=== PATIENT | male | born 1980 | race Two or more races ===

== ENCOUNTER 2017-04-21 21:12 | Emergency (ER) | payer SELFPAY ==
[~2017-04-21] VITALS: Ht 172.7 cm; Wt 84.8 kg
[2017-04-21 21:12] VITALS: BP_SYST 131
--- NOTE | 2017-04-21 21:12 | NUR ---
Patient to ER bed 1 to gown for evaluation. Side rails up. Report given to ROB JULIAN.
--- NOTE | 2017-04-21 21:20 | NUR ---
Pt states that he a sudden onset of R flank pain 8/ that radiates to the umbillical area. Denies nausea and vomitting. Denies dysuria. Denies constipation. Pt is tender in the area. AAOx4. Will continue to monitor. No other injuries or complaints mentioned/noted. No distress noted.
--- NOTE | 2017-04-21 21:23 | NUR ---
ER Dr. Cali at bedside examining patient.
[2017-04-21] MEDS ORDERED: NACL 0.9% 1,000 ML IV ONE (21:27)
[2017-04-21 21:55] LABS: BASOPHILS % (AUTO) 0.3 % (0.0-2.0); EOSINOPHILS # (AUTO) 0.3 K/uL (0.0-0.4); EOSINOPHILS % (AUTO) 3.2 % (0.0-4.0); HEMATOCRIT 39.5 % (36-54); HEMOGLOBIN 13.5 g/dL (14.0-18.0); LYMPHOCYTES # (AUTO) 2.8 K/uL (1.0-5.5); LYMPHOCYTES % (AUTO) 33.7 % (20.5-51.5); MEAN CORPUSCULAR HEMOGLOBIN 30 pg (27-31); MEAN CORPUSCULAR HGB CONC 34 % (32-36); MEAN CORPUSCULAR VOLUME 87 fL (79.0-98.0); MONOCYTES # (AUTO) 0.7 K/uL (0.0-1.0); NEUTROPHILS # (AUTO) 4.4 K/uL (1.8-7.7); NEUTROPHILS % (AUTO) 54.8 % (40.0-70.0); PLATELET COUNT (AUTO) 362 K/uL (130-430); RED BLOOD CELL COUNT(AUTO) 4.53 MIL/uL (4.2-6.2); RED CELL DISTRIBUTION WIDTH 12.8 % (9.0-15.0); WHITE BLOOD COUNT (AUTO) 8.2 K/uL (4.8-10.8)
[2017-04-21 22:06] LABS: CALCIUM 8.9 mg/dL (8.4-11.0); CREATININE 0.84 mg/dL (0.55-1.30); POTASSIUM 3.9 mmol/L (3.5-5.1)
[2017-04-21 22:11] LABS: ALBUMIN 3.6 g/dL (3.4-4.8); TOTAL BILIRUBIN 0.5 mg/dL (0.0-1.0)
[2017-04-21 23:07] VITALS: BP_SYST 121
--- NOTE | 2017-04-21 23:07 | NUR ---
Patient given written and verbal discharge instructions and verbalizes understanding. ER MD STEVENS discussed with patient the results and treatment provided. Patient in stable condition. ID arm band removed. IV catheter removed intact and dressing applied, no active bleeding. NO Rx given. Patient educated on pain management and to follow up with PMD. Pain Scale 2/10. Opportunity for questions provided and answered.
== END 2017-04-21 23:07 | disposition home or self-care (01) ==
LOC: EDBD 21:12 → SED 21:12
DX: R10.9 Unspecified abdominal pain (principal); R11.0 Nausea
CPT/HCPCS: 36415; 74176; 80053; 83690; 85025; 96360; 99285; J7030